=== PATIENT | female | born 2000 ===

== ENCOUNTER 2019-06-28 14:55 | Inpatient (IN) | payer OTHER ==
[~2019-06-28] VITALS: Ht 162.6 cm; Wt 80.7 kg
[2019-07-10] MEDS ORDERED: PRENATAL TABLE1 EACH PO (07:41)
== END 2019-07-13 14:57 | DRG 807 ==
LOC: O/R 07-03 13:45 → OB/GYN 07-09 13:45 → LDR 07-10 06:32 → OB/GYN 07-12 11:05
PROVIDERS: ADMIT Specialist
PROC: 4A1HXCZ Monitoring of Products of Conception, Cardiac Rate, External Approach (ICD-10-PCS; 2019-07-10)
PROC: 10E0XZZ Delivery of Products of Conception, External Approach (ICD-10-PCS; principal; 2019-07-11)
PROC: 0HQ9XZZ Repair Perineum Skin, External Approach (ICD-10-PCS; 2019-07-11)
PROC: 0UQGXZZ Repair Vagina, External Approach (ICD-10-PCS; 2019-07-11)
PROC: 0UQMXZZ Repair Vulva, External Approach (ICD-10-PCS; 2019-07-11)
PROC: 3E033VJ Introduction of Other Hormone into Peripheral Vein, Percutaneous Approach (ICD-10-PCS; 2019-07-11)
PROC: 4A033R1 Measurement of Arterial Saturation, Peripheral, Percutaneous Approach (ICD-10-PCS; 2019-07-11)
DX: O70.0 First degree perineal laceration during delivery (principal); Z37.0 Single live birth; Z3A.40 40 weeks gestation of pregnancy